=== PATIENT | female | born 1980 | race Caucasian/White ===

== ENCOUNTER 2021-09-04 07:57 | Outpatient (CLI) | payer OTHER, SELFPAY | END 2021-09-04 07:58 | disposition home or self-care (01) | PROVIDERS: PCP Family Medicine; Visit Provider Obstetrics & Gynecology | DX: Z01.818 Encounter for other preprocedural examination (principal); N92.6 Irregular menstruation, unspecified | CPT/HCPCS: 36415; 86850; 86900; 86901 ==

== ENCOUNTER 2021-09-10 00:23 | Day surgery (SDC) | payer OTHER, SELFPAY ==
--- NOTE | 2021-09-01 13:59 | SUR.PREOP ---
Report to the Outpatient Waiting Room, entrance under the green pavilion located off [facility], at time 0600 on date 09/10/21. OR Time: 0730. - You and your visitor will be asked a series of questions to screen for COVID 19 for your protection. - Only one visitor is allowed at this time. - The patient visitor is requested to leave or wait in car when not with patient. - A mask is required within the hospital. Patients may have clear liquids (water, carbonated beverages, clear teas, apple juice) until 3 hours prior to surgery with a maximum of 20 ounces. - NO CLEAR LIQUIDS AFTER 0430 - No food from midnight until time of surgery - Infants may have breast milk until 4 hours before surgery, infant formula 6 hours prior to surgery. - Children will be allowed to drink immediately following surgery. If applicable, please bring a bottle or sippy cup to assist with drinking. Juice, water, soda, and popsicles are readily available. For infants on formula, please bring formula the day of surgery. Pacifiers are allowed. Please no make-up, nail andorran, hairspray, perfume, deodorant, or body powder the day of surgery. No jewelry (including any body piercings) or valuables the day of surgery, leave them at home. Please take a shower or bath the night before, or the morning of, surgery with an antibacterial soap. Wear comfortable, loose fitting clothing. Children are encouraged to wear pajamas. - Jewelry must be removed prior to entering the operating room. Rings and piercings that are not removed may be cut off. - The hospital will not accept responsibility for valuables. - Please leave all valuables, including medications, at home the day of surgery. If you are going home after surgery, a licensed rental car ferry driver must drive you home. - NO public transportation without another adult. - We recommend that an adult stay with you for 24 hours following discharge. - We also recommend that you do not drive, make important decision, drink alcoholic beverages, or take any drugs that were not prescribed by your health care provider for at least 24 hours after your discharge time. For Pediatric surgeries, we recommend two adults accompany the child home (only one inside the building at this time). Follow any additional instructions given to you from your surgeon. If you or anyone in your household have experienced Covid symptoms in the past week, please notify your surgeon or the nurse liaison at the phone number below for possible testing. Telephone instructions given to ROBBY MURILLO and asked if any additional questions and then verbalized understanding. Patient advised to call surgeon office or pre surgery nurse liaison [phone] if any additional questions.
[2021-09-01 14:08] VITALS: BMI 31.0
--- NOTE | 2021-09-09 15:41 | PC.NURSE ---
Pt states no changes in health history or medications since initial interview. Pre-op instructions reviewed with pt. Pt denies further questions at this time.
--- NOTE | 2021-09-09 15:47 | PCCCNOTE ---
Phone call to Dr. Man's office, justine Ghosh about denied surgery codes 44800 and [id number]. Patient does have approval for [id number], she discusses with Ruth the line analyst and comes back on the line. Davina states yes that is correct and the patient is denied for codes 31386 and 44895 and plans to self pay. She brought 2700 dollars to the hospital yesterday has set up a payment plan.
[2021-09-10] VITALS (9 sets, daily range): BP systolic 96–110; BP diastolic 51–79; PULSE 58–92; RESP 10–20; TEMP 36.4–37.2; O2SAT 98–100
--- NOTE | 2021-09-10 06:52 | P.PNAN_ITS ---
Anes - Initial Pre Proc Eval Procedure: Operation Date: 09/10/21 07:30 Proposed Procedures p Total Laparoscopic Assisted Hysterectomy, Bilateral Salpingectomy, Left Oophorectomy - Jem Man MD Date/Time: 09/10/21 06:52 Surgeon: Jem Man MD Pre Op Diagnosis: dysmenorrhea Patient Data Age: 40 Gender: F Height: 1.6 m Weight: 79.5 kg Allergies Allergy/AdvReac Type Severity Reaction Status Date / Time No Known Allergies Allergy Unknown Unverified 09/10/21 06:27 Home Medications Medication Instructions Recorded Confirmed Type No Home Medications 09/01/21 09/10/21 History Patient hx anesthesia problems: none Family hx anesthesia problems: none Results Review: All pre-operative results and documents have been reviewed as part of the pre- operative evaluation. [facility] Past Medical History Medical History (Updated 09/10/21 @ 06:52 by Nando Rosales MD) Obesity Surgical History Surgical History (Updated 09/10/21 @ 06:53 by Nando Rosales MD) History of endometrial ablation S/P gastric sleeve procedure Social History Social History Smoking status: Never smoker Living arrangements: with family Spiritual care concerns: No Anes - Eval Final PreProcedure Day of Procedure 09/10/21 06:52 Patient weight: obese Heart: regular rate and rhythm Lungs: clear to auscultation Airway: Mallampati scale class II Neurological: alert and oriented Last oral intake: >/= 8 hours ASA classification: II Emergent: no Anesthesia type and monitoring: general ETT and standard monitoring Results Review: All pre-operative results and documents have been reviewed as part of the pre- operative evaluation. Informed Consent: The patient's anesthetic plan and its attendant risks and benefits were discussed with the patient/family/POA. Questions were solicited and answers provided to the satisfaction of the patient/family/POA.
--- NOTE | 2021-09-10 06:56 | PM.IMHP ---
H&P: HPI History of Present Illness Date/Time: 09/10/21 06:56 Chief Complaint: Dysmenorrhea, pelvic pain Narrative: This patient is a 40-year-old female with severe dysmenorrhea and pelvic pain who presents for total laparoscopic hysterectomy left salpingo-oophorectomy and right salpingectomy she understands the procedure. I described to her in detail. She understands there is risk. She understands that injuries may occur that result in hospitalization, more surgery, and severe illness. She understands risk of hemorrhage and infection. Review of Systems Review of Systems: All systems reviewed & are unremarkable except as noted in HPI and below Constitutional: Constitutional: Denies chills, Denies fatigue, Denies fever(s) and Denies weakness Eyes: Eyes: Denies blurry vision, Denies change in vision, Denies loss of peripheral vision, Denies loss of vision, Denies other visual disturbances and Denies eye pain ENT: Denies vertigo, Denies dizziness, Denies hearing loss, Denies mouth pain, Denies nasal obstruction, Denies neck mass and Denies neck pain Cardiovascular: Cardiovascular: Denies chest pain, Denies diaphoresis, Denies syncope, Denies leg edema and Denies dyspnea Respiratory: Respiratory: Denies chest congestion, Denies cough, Denies hemoptysis, Denies dyspnea and Denies wheezing Gastrointestinal: Gastrointestinal: Denies abdominal pain, Denies constipation, Denies diarrhea, Denies nausea and Denies vomiting Genitourinary: Genitourinary: Denies hematuria, Denies change in libido, Denies nocturia, Denies genital lesions, Denies flank pain and Denies urinary urgency Musculoskeletal: Musculoskeletal: Denies abnormal gait, Denies back pain, Denies myalgias, Denies arthralgias, Denies joint swelling, Denies muscle weakness and Denies neck pain Integumentary/Breasts: Skin/Breast: Denies swelling, Denies breast pain, Denies breast mass, Denies dry skin, Denies nipple discharge, Denies unusual bruising and Denies jaundice Neurologic: Denies Neuro-related abnormal movements, Denies Abnormal speech present, Denies abnormal gait, Denies behavioral changes, Denies confusion, Denies vertigo, Denies dizziness, Denies syncope, Denies loss of vision, Denies memory loss, Denies convulsions and Denies weakness Psychiatric: Psychiatric: Denies abnormal sleep pattern, Denies behavioral changes, Denies change in libido, Denies confusion, Denies depression, Denies anhedonia and Denies memory loss Endocrine: Endocrine: Reports no additional endocrine complaints, Denies change in libido and Denies fatigue Hematologic/Lymphatic: Hematologic/Lymphatic: Reports no additional hematologic/lymphatic complaints Allergic/Immunologic: Allergic/Immunologic: Reports no additional allergic/immunologic complaints and Denies wheezing PMFSH Past Medical History Medical History (Updated 09/10/21 @ 06:59 by Jem Man MD) Obesity Surgical History Surgical History (Updated 09/10/21 @ 06:53 by Nando Rosales MD) History of endometrial ablation S/P gastric sleeve procedure Social History Social History Smoking status: Never smoker Living arrangements: with family Spiritual care concerns: No Meds Home Medications and Allergies Home Medications Medication Instructions Recorded Confirmed Type No Home Medications 09/01/21 09/10/21 History Allergies Allergy/AdvReac Type Severity Reaction Status Date / Time No Known Allergies Allergy Unknown Unverified 09/10/21 06:27 Exam Const: General: cooperative, healthy appearing, comfortable and no acute distress; No confusion Orientation/consciousness: oriented to person, oriented to place, oriented to time and No confusion HENMT: Head: normal to inspection Ears: external ears normal General nose exam: Normal external nose present Face and sinus: normal facial exam Eyes: General: appearance normal, both eyes and all related st
[2021-09-10] MEDS: ACETAMINOPHEN 500 MG TABLET 1000 MG PO (06:59)
[2021-09-10] MEDS: SCOPOLAMINE 1.5 MG PATCH TRANSDERM (07:01)
--- NOTE | 2021-09-10 07:01 | WPDHPUPDATE1 ---
History and Physical Update Update Date/Time: 09/10/21 07:01 History and Physical has been reviewed, including an updated exam of the patient. There are NO changes in the patient's condition. Risks, benefits, and alternatives have been discussed and questions answered. Patient agrees to proceed with procedure.
[2021-09-10] MEDS: LACTATED RINGERS 1,000 ML 30 ML IV CONT ×2 (07:05→09:27)
[2021-09-10] MEDS: KETOROLAC 15 MG/ML VIAL (*BKC) IV PUSH (07:21)
[2021-09-10] MEDS: ceFAZolin 2 GM/D5W 50 ML 2 GM/50 ML BAG IVPB (07:30)
[2021-09-10] MEDS: ceFAZolin SODIUM 1 GM VIAL (07:30)
[2021-09-10] MEDS: fentaNYL CITRATE INJ (*CRX) 100 MCG/2 ML VIAL 25 MCG IV PUSH ×6 (09:45→10:30)
--- NOTE | 2021-09-10 09:54 | W.PM.PROC2 ---
Procedure Note - Detailed Date of Procedure 09/10/21 Pre-op Diagnosis dysmenorrhea Post-op Diagnosis Same (Pelvic adhesions) Procedure Performed Total laparoscopic hysterectomy. Bilateral salpingectomy and left oophorectomy, adhesiolysis-30 minutes Surgeon Jem Man MD Anesthesia General Indications Severe dysmenorrhea Findings Dense, diffuse adhesions between the uterus and the anterior abdominal wall/pelvic wall. Nodular irregular uterus, normal-appearing right ovary and tubes. Cystic left ovary Description of Procedure This patient was taken to the operating room. She was prepped and draped in the dorsal lithotomy position after induction of general anesthesia. The uterine manipulator and Leonard cup were placed. This was done with a speculum and tenaculum. The speculum was placed. The cervix was grasped with a tenaculum. The stay sutures were placed at 3 and 9:00 a.m.. The stay sutures of 0 Vicryl were brought through the appropriately sized Leonard cup. The tip of the RICKY manipulator was placed in the intrauterine cavity. The cup was slid into place around the cervix and into the fornices. It was locked into place. The sutures were then wrapped around the handle and tied under tension. A 5 mm skin incision was made in the left upper quadrant the abdomen. A 5 mm trocar was inserted into the intrauterine cavity under direct visualization of the scope. Pneumoperitoneum was achieved. A left lower quadrant 11 mm incision was made with scalpel. An 11 mm trocar was inserted into the anterior abdominal cavity under direct visualization the scope. A 5 mm infraumbilical incision was made with a scalpel and a 5 mm trocar was inserted the intra-abdominal cavity under direct visualization of the scope. 30 minutes of adhesiolysis was performed. This was required to separate the uterus from the anterior abdominal wall/pelvic wall. Sharp and blunt dissection along with cautery used to take down adhesions that were thick. Bilateral ureteral lysis was performed. This was done from the pelvic brim down to the uterine artery. This was done with careful dissection using sharp and blunt dissection. The fallopian tubes were removed bilaterally. The mesosalpinx around the fallopian tubes were cauterized transected with LigaSure cautery. This was done in a bilateral fashion from the ovary to the uterine cornua. The fallopian tube was transected at the uterine cornu and amputated. The tube was taken out the left lower quadrant trocar site. In a stepwise fashion along the lateral aspects of the uterus the round ligament and broad ligaments were cauterized transected down to the level of the uterine arteries. A bladder flap was created in the bladder was moved distally to the end of the cervix and over the Leonard cup. The bilateral uterine arteries were cauterized and transected. Colpotomy was then performed. In a circumferential fashion the vagina was transected using unipolar cautery. The incision was made down on the Leonard cup. The uterus and cervix were taken out through the vagina. A pneumo occluder was placed in the vagina. The vaginal cuff was closed with a 0 V lock suture in a running fashion. The pelvis was irrigated with copious amounts antibiotic irrigation. The ureters were again examined and found to be intact and flowing freely under the uterine arteries into the bladder. The bladder was intact. It was examined directly. The vagina was irrigated with Betadine solution after removal of the Pneumo occluder. The patient was taken to recovery room. She was stable condition. Sponge lap and needle counts were correct x2. Estimated Blood Loss -75.0 Drains Yes Packing No Pathology Yes Complications No immediate complications Condition Stable Disposition Floor
--- NOTE | 2021-09-10 10:51 | PC.NURSE ---
This patient, Licha Garcia, was received from PACU on 09/10/21 at 1051 via bed. Patient oriented to unit policies and routines.
[2021-09-10] MEDS: KETOROLAC 30 MG/ML VIAL (*BKC) IV PUSH (11:26)
[2021-09-10] MEDS: DEXTROSE 5%/0.45% SOD CHL 1,000 ML 125 ML IV CONT (11:26)
[2021-09-10] MEDS: HYDROcodone/acetaminophen (*CRX) 10-325 MG TABLET 1 TAB PO ×3 (13:57→21:02)
[2021-09-10] MEDS: IBUPROFEN 600 MG TABLET PO (17:10)
[2021-09-11] VITALS: BP 99/53; PULSE 67; RESP 18; TEMP 36.7
[2021-09-11] MEDS: HYDROcodone/acetaminophen (*CRX) 10-325 MG TABLET 1 TAB PO ×4 (00:16→12:13)
[2021-09-11] MEDS: IBUPROFEN 600 MG TABLET PO ×2 (00:16→08:12)
[2021-09-11 04:00] VITALS: BP 104/55; PULSE 67; RESP 18; TEMP 36.8
[2021-09-11 07:45] VITALS: BP 93/49; PULSE 66; RESP 18; TEMP 36.6; O2SAT 98
--- NOTE | 2021-09-11 08:04 | WPDANLDPN2 ---
Anes-Prog Note L&D Date/Time: 09/11/21 08:04 Comfortable throughout: labor and delivery Neuraxial method: epidural Epidural/Spinal procedure site: clean & non-tender Neuro status: Neuro function grossly intact. Cardiovascular status: normal Respiratory status: normal Airway patency: baseline Mental status: baseline Post-Op hydration status: normal Vital Signs: Last Vital Signs Temp 36.8 C 09/11/21 04:00 Pulse 67 09/11/21 04:00 Resp 18 09/11/21 04:00 BP 104/55 L 09/11/21 04:00 Pulse Ox 98 09/10/21 15:00 O2 Del Method Room Air 09/11/21 04:00 O2 Flow Rate 2 09/10/21 11:00 Pain score (VAS): 2 I/O: Intake & Output 09/10/21 09/11/21 09/11/21 23:59 07:59 15:59 Intake Total 1740 600 Output Total 700 650 Balance 1040 -50 Post-procedural complaints: none Patient feedback: Patient satisfied with anesthetic care.
--- NOTE | 2021-09-11 08:39 | PM.GYNPNOP ---
C D AREA SUPERVISOR - A/P Postoperative Procedures: Procedures Operation Date: 09/10/21 07:30 Actual Procedure Side Surgeon p Total Laparoscopic Assisted Hysterectomy, Bilateral Salpingectomy, Left Oophorectomy, Adhesiolysis 30 minutes Bilateral Jem Man MD Postoperative day: 1 Postoperative status: doing well and other (Tollerating Regular Diet) Postoperative plan: routine post-op care and discharge Time Spent With Patient Time: Total time spent is greater than 50% in coordination of care (as documented) at patient's floor/unit and/or counseling patient: Time with patient: 15 - 25 minutes C D AREA SUPERVISOR- PN:Subj Post-Op Subjective Date/time seen: 09/11/21 08:39 Subjective: patient reports feeling better, pain is well controlled and patient is tolerating oral intake Exam Const: General: cooperative, healthy appearing, comfortable and no acute distress Resp: Auscultation: no crackles, no rales, no rhonchi and no wheezes Cardio: Rhythm: regular rhythm Heart sounds: no click and no murmurs GI: Inspection: non-distended Auscultation: normal bowel sounds Other: Incisions - CDI Extrem: General: normal to inspection, no pedal edema and no calf tenderness C D AREA SUPERVISOR - PN: Obj Data Vital Signs Vital Signs: Vital Signs - 24 hr 09/10/21 09:27 09/10/21 09:40 09/10/21 09:55 Temperature 97.5 F L Pulse Rate 92 64 60 Respiratory Rate 12 10 L 12 Blood Pressure 108/51 L 101/56 L 110/57 L Pulse Oximetry 100 99 99 Oxygen Delivery Simple Face Mask Simple Face Mask Simple Face Mask Oxygen Flow Rate 6 6 6 09/10/21 10:10 09/10/21 10:25 09/10/21 11:00 Temperature Pulse Rate 60 58 L Respiratory Rate 14 16 Blood Pressure 108/79 96/68 L Pulse Oximetry 100 100 100 Oxygen Delivery Nasal Cannula Nasal Cannula Nasal Cannula Oxygen Flow Rate 2 2 2 09/10/21 11:00 09/10/21 15:00 09/10/21 15:00 Temperature 97.8 F 98.4 F Pulse Rate 69 80 Respiratory Rate 16 16 Blood Pressure 109/63 107/68 Pulse Oximetry 100 98 Oxygen Delivery Room Air Oxygen Flow Rate 09/10/21 18:30 09/10/21 18:30 09/11/21 00:00 Temperature 98.4 F 98.0 F Pulse Rate 71 67 Respiratory Rate 16 18 Blood Pressure 107/67 99/53 L Pulse Oximetry Oxygen Delivery Room Air Oxygen Flow Rate 09/11/21 00:00 09/11/21 04:00 09/11/21 04:00 Temperature 98.2 F Pulse Rate 67 Respiratory Rate 18 Blood Pressure 104/55 L Pulse Oximetry Oxygen Delivery Room Air Room Air Oxygen Flow Rate Intake/Output Intake/Output: Intake & Output 09/08/21 09/09/21 09/10/21 09/11/21 23:59 23:59 23:59 23:59 Intake Total 3390 600 Output Total 1350 650 Balance 2040 -50 Meds/Results Medications: Active Medications Generic Name Dose Route Start Last Admin Trade Name Freq PRN Reason Stop Dose Admin Hydrocodone Bitart/Acetaminophen 1 tab 09/10/21 10:41 Hydrocodone/Acetaminophen (*Crx) 5-325 Mg Tablet PO Q3H PRN Pain Rated 5 or Less Hydrocodone Bitart/Acetaminophen 1 tab 09/10/21 10:41 09/11/21 08:12 Hydrocodone/Acetaminophen (*Crx) 10-325 Mg Tablet PO 1 tab Q3H PRN Administration Pain Rated 6 or Greater Ibuprofen 600 mg 09/10/21 10:41 09/11/21 08:12 Ibuprofen 600 Mg Tablet PO 600 mg Q6H PRN Administration Cramping Ketorolac Tromethamine 30 mg 09/10/21 10:41 09/10/21 11:26 Ketorolac 30 Mg/Ml Vial (*Bkc) IV PUSH 09/15/21 10:40 15 mg Q6H PRN Administration Pain Rated 4-6 Naloxone HCl 0.1 mg 09/10/21 10:41 Naloxone Hcl 0.4 Mg/Ml Vial IV PUSH Q2M PRN Respiratory rate less than 10 Ondansetron HCl 4 mg 09/10/21 10:41 Ondansetron Inj 4 Mg/2 Ml Vial IV PUSH Q6H PRN Nausea And Vomiting
== END 2021-09-11 13:20 | disposition home or self-care (01) ==
LOC: ANHSURGERY 08:44 → ANHOB2 11:43
PROVIDERS: PCP Family Medicine; Visit Provider Obstetrics & Gynecology
PROC: 0UT9FZZ Resection of Uterus, Via Natural or Artificial Opening With Percutaneous Endoscopic Assistance (ICD-10-PCS; CPT 58571; principal; 2021-09-10 07:30)
DX: N94.6 Dysmenorrhea, unspecified (principal); K66.0 Peritoneal adhesions (postprocedural) (postinfection); N83.12 Corpus luteum cyst of left ovary; N87.9 Dysplasia of cervix uteri, unspecified; R10.2 Pelvic and perineal pain; Z98.84 Bariatric surgery status; E66.9 Obesity, unspecified; Z68.29 Body mass index [BMI] 29.0-29.9, adult
CPT/HCPCS: 58571; 36415; 86850; 86900; 86901; 88304; 88307; 99199; A9270; J0690; J1100; J1170; J1885; J2250; J2405; J2704; J2710; J3010; J7030; J7120

== ENCOUNTER 2022-06-03 09:54 | Outpatient (CLI) | payer OTHER, SELFPAY ==
[2022-06-03 11:09] LABS: Prealbumin 20.2 mg/dL (17.6-36.0)
[2022-06-03 11:25] LABS: Iron 115 ug/dL (37-170)
[2022-06-08 12:45] LABS: Vitamin B1 7 nmol/L (8-30)
== END 2022-06-03 09:55 | disposition home or self-care (01) ==
PROVIDERS: PCP Family Medicine; Visit Provider Surgery Plastic and Reconstructive Surgery
DX: R63.4 Abnormal weight loss (principal)
CPT/HCPCS: 36415; 82040; 83540; 84134; 84425

== ENCOUNTER 2022-06-19 00:35 | Day surgery (SDC) | payer OTHER, SELFPAY ==
[2022-06-15 12:36] VITALS: BMI 25.7
--- NOTE | 2022-06-15 12:41 | PC.NURSE ---
Report to the Outpatient Waiting Room, entrance under the green pavilion located off [facility], at time 7:00 on date 06/19/22. Planned Procedure Time: 9:00. Time changes happen often and if your time is changed the preop area will call you the afternoon before. - You and your visitor will be asked to self-screen and do not enter if you have any COVID symptoms. - A mask is optional within the hospital at this time. Patients may have clear liquids (water, carbonated beverages, clear teas, apple juice) until 3 hours prior to surgery with a maximum of 20 ounces. - No food from midnight until time of surgery Take the following medications with a SIP of water the morning of surgery: NONE DO NOT STOP ANY OF YOUR OTHER PRESCRIPTION MEDICATIONS PRIOR TO SURGERY EXCEPT THE FOLLOWING Medications to discontinue per physician: VITAMINS/SUPPLEMENTS Date to take last dose: 06/15/22 Please no make-up, nail urdu, hairspray, perfume, deodorant, or body powder the day of surgery. No jewelry (including any body piercings) or valuables the day of surgery, leave them at home. Please take a shower or bath the night before, or the morning of, surgery with an antibacterial soap. Wear comfortable, loose fitting clothing. - Jewelry must be removed prior to entering the operating room. Rings and piercings that are not removed may be cut off. - The hospital will not accept responsibility for valuables. - Please leave all valuables, including medications, at home the day of surgery. If you are going home after surgery, a licensed [place] driver must drive you home. - NO public transportation without another adult if you receive anesthesia. - We recommend that an adult stay with you for 24 hours following discharge. - We also recommend that you do not drive, make important decision, drink alcoholic beverages, or take any drugs that were not prescribed by your health care provider for at least 24 hours after your discharge time. Follow any additional instructions given to you from your surgeon. If you or anyone in your household have experienced Covid symptoms in the past week, please notify your surgeon or the nurse liaison at the phone number below for possible testing. Telephone instructions given to ALEC CASTRO and asked if any additional questions and then verbalized understanding. Patient advised to call surgeon office or pre surgery nurse liaison [phone] if any additional questions.
--- NOTE | 2022-06-18 14:23 | WPDANESEPPF ---
Anes - Initial Pre Proc Eval Procedure: Operation Date: 06/19/22 09:00 Proposed Procedures p Bilateral Medial Thigh Lift, - Reece Clifton MD s Bilateral Breast Mastopexy - Reece Clifton MD Date/Time: 06/18/22 14:23 Surgeon: Reece Clifton MD Pre Op Diagnosis: skin laxity, breast ptosis Patient Data Age: 41 Gender: F Height: 1.6 m Weight: 65.8 kg Allergies Allergy/AdvReac Type Severity Reaction Status Date / Time No Known Allergies Allergy Unknown Unverified 06/19/22 07:36 Home Medications Medication Instructions Recorded Confirmed Type cholecalciferol (vit D3) 1,000 1 tablet PO DAILY 06/15/22 06/19/22 History unit-vitamin K2 (MK4) 100 mcg tablet multivitamin 1 tablet PO DAILY 06/15/22 06/19/22 History Patient hx anesthesia problems: none Family hx anesthesia problems: none Results Review: All pre-operative results and documents have been reviewed as part of the pre-operative evaluation. [facility] Past Medical History Medical History (Updated 06/19/22 @ 07:46 by Micheal Durant MD) Dysmenorrhea Surgical History Surgical History (Updated 09/10/21 @ 06:53 by Nando Rosales MD) History of endometrial ablation S/P gastric sleeve procedure Social History Social History Smoking status: Never smoker Alcohol intake: current Alcohol use details: 2/MONTH Substance use: never Substance use type: does not use Living arrangements: with family Spiritual care concerns: No Anes - Eval Final PreProcedure Day of Procedure 06/18/22 14:23 Patient weight: obese Heart: regular rate and rhythm Lungs: clear to auscultation Airway: Mallampati scale class II Neurological: alert and oriented Last oral intake: >/= 8 hours ASA classification: I Emergent: no Anesthesia type and monitoring: general LMA and standard monitoring Results Review: All pre-operative results and documents have been reviewed as part of the pre-operative evaluation. Informed Consent: The patient's anesthetic plan and its attendant risks and benefits were discussed with the patient/family/POA. Questions were solicited and answers provided to the satisfaction of the patient/family/POA.
[2022-06-19] VITALS (10 sets, daily range): BP systolic 104–119; BP diastolic 62–71; PULSE 66–92; RESP 10–20; TEMP 36.4–36.7; O2SAT 100
--- NOTE | 2022-06-19 06:11 | ECG_ITS ---
Measurements Intervals [place] Rate: 61 P: 68 NV: 137 QRS: 24 QRSD: 102 T: 21 QT: 391 QTc: 397 Interpretive Statements SINUS RHYTHM WITH SINUS ARRHYTHMIA BASELINE ARTIFACT- V5 NORMAL ECG NO PREVIOUS ECG AVAILABLE FOR COMPARISON Electronically Signed On 06-19-2022 8:28:09 CDT by Agustin Reeves D.O.
[2022-06-19 07:33] LABS: Urine Cotinine NEGATIVE
[2022-06-19] MEDS: LACTATED RINGERS 1,000 ML 30 ML IV CONT ×2 (07:54→14:07)
[2022-06-19 08:02] LABS: Hematocrit 34.7 % (37.0-47.0); Hemoglobin 11.7 g/dL (12.0-15.0)
[2022-06-19] MEDS: SCOPOLAMINE 1.5 MG PATCH TRANSDERM (08:05)
--- NOTE | 2022-06-19 08:40 | WPDHPUPDATE1 ---
History and Physical Update Update Date/Time: 06/19/22 08:40 History and Physical has been reviewed, including an updated exam of the patient. There are NO changes in the patient's condition. Risks, benefits, and alternatives have been discussed and questions answered. Patient agrees to proceed with procedure.
--- NOTE | 2022-06-19 08:42 | W.PM.PROC2 ---
Procedure Note - Detailed Date of Procedure 06/19/22 Pre-op Diagnosis skin laxity, breast ptosis Post-op Diagnosis Same Procedure Performed 1. Bilateral augmentation mastopexy 2. Bilateral medial thigh lift Surgeon Reece Clifton MD Anesthesia General Findings Bilateral Eduardo SoftTouch 400cc implants Bilateral Superior pedicle, inverted T mastopexy Right - REF SSLP-400 SN [id number] Left - REF SSLP-400 SN [id number] Description of Procedure She is here today for bilateral breast augmentation mastopexy. Previously and again today the risks, benefits, alternatives were discussed in extensive detail. I wanted her to be very realistic about the risks involved as well as expectations. We discussed aftercare and what to monitor for. discussed her current asymmetry and how this will exist for breast and legs post-op. She has some vertical laxity of thighs and we discussed our options and understands this will exist after the procedure. Made sure answered all of her questions to her satisfaction today and consent was obtained. Marked in the preoperative holding area with their verification. The patient was taken to the operating room placed supine on the operating table. Anesthesia was provided by anesthesiology. A surgical time-out was taken. Breast We cleansed the skin and 1% lidocaine and 0.25% Marcaine with epinephrine was used anesthetize as a field block. She was prepped and draped in a standard sterile fashion. Tegaderm nipple Jang were placed. A 15 blade used to make an incision just superior to the inframammary fold leaving a cusp of de-epithelized tissue at the t junction. Dissection was continued until the chest wall as identified. I incised the pectoralis major along its inferior border and completely released the inferior border leaving the medial border intact. I created a subpectoral pocket in the appropriate dimensions based on our preoperative planning for the implant. I then copiously irrigated with saline solution and verified a strict hemostasis. Next the use a triple antibiotic and Betadine containing solution to irrigate the pocket. I washed my gloves with the triple antibiotic and Betadine solution. We washed the implant immediately upon opening it with this solution and only opened it when we needed it. I used implant funnel and no-touch technique. The implant was introduced into the pocket using the funnel. Having verified positioning of the implant this was closed using 2-0 PDS. I tailor tacked the breast into position. Placed her in a sitting position. Verified the nipple-areolar location based on preoperative planning as well as intraoperative observations and measurements in full agreement. She was placed supine. I de-epithelialized the pedicle. I then removed the inferior central portion of the breast need making sure the implant was well protected. I elevated medial and lateral tissue flaps as well for planned closure. I closed along the IMF with 2-0 Stratafix. Along the vertical with 2-0 PDS. I closed around the areola with 3-0 strata fix. 3-0 Monocryl along the vertical. 3-0 Stratafix along the IMF. I finally closed everything with running subcuticular 4-0 Monocryl and tissue glue. Thighs Stab incisions were made and I tumesced with a tumescent solution. Once adequate time for hemostasis suction lipectomy was with a 5mm basket cannula based on S.A.F.E. technique. This was completed based on preoperative planning, intraoperative observation, and rolling pinch test which was in full agreement. I completely de-fatted the planned resection area and a strip avulsion technique was completed. Starting proximal to distal a 10 blade was used to excise the intervening skin and this was tacked as we proceed to ensure good closure. This was closed using a 2-0 Quill, 3-0 strata fix, running subcuticular 4-0 Monocryl, and tissue glue. Dressings were placed. Tolerated the procedure well. Kenny
[2022-06-19] MEDS: TRANEXAMIC ACID 1,000MG/ISO100 1,000 MG/100 ML BAG 200 MG IVPB (09:09)
[2022-06-19] MEDS: ceFAZolin 2 GM/D5W 50 ML 2 GM/50 ML BAG IVPB (09:19)
[2022-06-19] MEDS: NACL 0.9% IRRIG POUR BOTTLE 900 ML, GENTAMICIN SULFATE INJ 160 MG, ceFAZolin 2 GM, POVI... IRRIGATION (09:55)
[2022-06-19] MEDS: LACTATED RINGERS IRRIG 1,000 ML, LIDOCAINE HCL 1% LOCAL INJ 50 ML, EPINEPHrine HCL INJ ... INFILTRATE (09:55)
[2022-06-19] MEDS: ceFAZolin SODIUM 1 GM VIAL IV PUSH (13:31)
[2022-06-19] MEDS: fentaNYL CITRATE INJ (*CRX) 100 MCG/2 ML VIAL 25 MCG IV PUSH ×2 (15:01→15:09)
[2022-06-19] MEDS: oxyCODONE HCL (*CRX) 5 MG TAB IR PO (15:38)
== END 2022-06-19 16:18 | disposition home or self-care (01) ==
PROVIDERS: PCP Family Medicine; Visit Provider Surgery Plastic and Reconstructive Surgery
PROC: (CPT 15832; principal; 2022-06-19 09:00)
PROC: (CPT 19316; 2022-06-19 09:00)
DX: Z41.1 Encounter for cosmetic surgery (principal); L57.4 Cutis laxa senilis; N64.81 Ptosis of breast; Z98.84 Bariatric surgery status
CPT/HCPCS: 19316; 19325; 15832; 80307; 85014; 85018; 93005; A9270; J0171; J0690; J1100; J1170; J1200; J1580; J2250; J2405; J2704; J2710; J3010; J7120

== ENCOUNTER 2022-10-02 13:32 | Outpatient (CLI) | payer OTHER, SELFPAY ==
[2022-10-02 14:00] LABS: Hematocrit 41.5 % (37.0-47.0); Hemoglobin 13.7 g/dL (12.0-15.0); Mean Corpuscular Hemoglobin 30.8 pg (26-34); Mean Corpuscular Volume 93.3 fl (80-100); Mean Platelet Volume 9.6 fl (7.4-10.4); Platelet Count Result 266 k/mm3 (150-375); Red Blood Count 4.45 M/mm3 (4.2-5.4); Red Cell Distribution Width 11.6 % (11.5-14.5); White Blood Count 7.2 K/mm3 (4.5-10.0)
[2022-10-02 14:12] LABS: Albumin Level 4.8 g/dL (3.5-5.1); Anion Gap 10 mmol/L (8-16); Blood Urea Nitrogen 21 mg/dL (7-17); Calcium 9.8 mg/dL (8.4-10.2); Carbon Dioxide 26 mmol/L (22-30); Chloride 104 mmol/L (98-107); Estimated Glomerular Filt Rate > 60; Glucose 90 mg/dL (65-110); Potassium 4.2 mmol/L (3.4-5.0); Sodium 140 mmol/L (137-145)
[2022-10-02 14:19] LABS: Prealbumin 23.8 mg/dL (17.6-36.0)
[2022-10-02 14:23] LABS: Iron 120 ug/dL (37-170)
[2022-10-07 14:46] LABS: Vitamin B1 12 nmol/L (8-30)
== END 2022-10-02 13:33 | disposition home or self-care (01) ==
LOC: ANHLAB 13:35
PROVIDERS: PCP Family Medicine; Visit Provider Surgery Plastic and Reconstructive Surgery
DX: R63.4 Abnormal weight loss (principal)
CPT/HCPCS: 36415; 80048; 82040; 83540; 84134; 84425; 85027

== ENCOUNTER 2022-10-08 00:47 | Day surgery (SDC) | payer OTHER, SELFPAY ==
--- NOTE | 2022-10-05 15:08 | PC.NURSE ---
Report to the Outpatient Waiting Room, entrance under the green pavilion located off [facility], at time _0600 on date __10/08/22 . Planned Procedure Time: _0730 . Time changes happen often and if your time is changed the preop area will call you the afternoon before. - You and your visitor will be asked to self-screen and do not enter if you have any COVID symptoms. - A mask is optional within the hospital at this time. Patients may have clear liquids (water, carbonated beverages, clear teas, apple juice) until 3 hours prior to surgery with a maximum of 20 ounces. - No food from midnight until time of surgery - Infants may have breast milk until 4 hours before surgery, infant formula 6 hours prior to surgery. - Children will be allowed to drink immediately following surgery. If applicable, please bring a bottle or sippy cup to assist with drinking. Juice, water, soda, and popsicles are readily available. For infants on formula, please bring formula the day of surgery. Pacifiers are allowed. Take the following medications with a SIP of water the morning of surgery: __NONE DO NOT STOP ANY OF YOUR OTHER PRESCRIPTION MEDICATIONS PRIOR TO SURGERY ?EXCEPT THE FOLLOWING Medications to discontinue per physician ALL VITAMINS AND SUPPLEMENTS 3 DAYS PRE OP .LAST DOSE 10/04/22 Please no make-up, nail nigerien, hairspray, perfume, deodorant, or body powder the day of surgery. No jewelry (including any body piercings) or valuables the day of surgery, leave them at home. Please take a shower or bath the night before, or the morning of, surgery with an antibacterial soap. Wear comfortable, loose fitting clothing. Children are encouraged to wear pajamas. - Jewelry must be removed prior to entering the operating room. Rings and piercings that are not removed may be cut off. - The hospital will not accept responsibility for valuables. - Please leave all valuables, including medications, at home the day of surgery. If you are going home after surgery, a licensed school bus driver/teacher assistant must drive you home. - NO public transportation without another adult if you receive anesthesia. - We recommend that an adult stay with you for 24 hours following discharge. - We also recommend that you do not drive, make important decision, drink alcoholic beverages, or take any drugs that were not prescribed by your health care provider for at least 24 hours after your discharge time. For Pediatric surgeries, we recommend two adults accompany the child home. Follow any additional instructions given to you from your surgeon. If you or anyone in your household have experienced Covid symptoms in the past week, please notify your surgeon or the nurse liaison at the phone number below for possible testing. Telephone instructions given to ___PATIENT and asked if any additional questions and then verbalized understanding. Patient advised to call surgeon office or pre surgery nurse liaison [phone] if any additional questions.
[2022-10-05 15:13] VITALS: BMI 24.8
[2022-10-08] VITALS (10 sets, daily range): BP systolic 100–126; BP diastolic 57–95; PULSE 57–103; RESP 11–24; TEMP 36.9–37.2; O2SAT 96–100
[2022-10-08 06:42] LABS: Urine Cotinine NEGATIVE
[2022-10-08] MEDS: LACTATED RINGERS 1,000 ML 30 ML IV CONT ×2 (06:45→11:26)
--- NOTE | 2022-10-08 06:55 | WPDHPUPDATE1 ---
History and Physical Update Update Date/Time: 10/08/22 06:55 History and Physical has been reviewed, including an updated exam of the patient. There are NO changes in the patient's condition. Risks, benefits, and alternatives have been discussed and questions answered. Patient agrees to proceed with procedure.
--- NOTE | 2022-10-08 06:55 | W.PM.PROC2 ---
Procedure Note - Detailed Date of Procedure 10/08/22 Pre-op Diagnosis skin laxity Post-op Diagnosis Same Procedure Performed Progressive tension abdominoplasty with suction lipectomy Surgeon Reece Clifton MD Anesthesia General Findings Tissue removed: 1815 grams Lipoaspirate: 1300 cc Description of Procedure They are here today for the above. Previously and again today the risks, benefits, alternatives were discussed in extensive detail. I wanted them to be very realistic about the risks involved as well as expectations. We discussed aftercare and what to monitor for. I was very upfront about the risks of wound breakdown leading to loss of skin, open wounds, and need for additional procedures with permanent abdominal deformity. We discussed DVT/PE risks and management. Made sure answered all of their questions to their satisfaction today and consent was obtained. They were marked in the preoperative holding area with their verification. The patient was taken to the operating room. Anesthesia was provided by anesthesiology. A Breaux catheter was started. Placed prone with care taken to protect from injury. They were prepped and draped in a standard sterile fashion. A surgical time-out was taken. Stab incisions were made and tumescent solution infiltrated. Once adequate time was allowed for hemostasis a 5mm basket cannula and 3mm multi-hole cannula were utilized to complete suction lipectomy based on S.A.F.E. technique in multiple planes and passes. Suction lipectomy continued to result based on pre-operative planning, intra-operative observation, and rolling pinch test which were in full agreement. The patient was then transfered supine with care taken to protect from injury during the turn to protect from injury. Prepped and draped in a standard sterile fashion. I placed the patient in a flexed position to verify the upper and lower markings would reach. I then placed supine. A thorough abdominal examination was completed. Stab incisions were made and tumescent solution infiltrated. Once adequate time was allowed for hemostasis a 5mm basket cannula was again utilized to complete suction lipectomy based on S.A.F.E. technique in multiple planes and passes. Suction lipectomy continued to result based on pre-operative planning, intra-operative observation, and rolling pinch test which were in full agreement. A 10 blade was used to make the upper incision. I continued dissection down to the level of fascia. Elevated just what was necessary for repair of the diastasis. I then again flexed the bed to verify the upper skin flap would reach the lower markings without tension. Once verified I placed her supine once again and a 10 blade used to make the lower incision. I elevated up to level the umbilicus and left the umbilicus intact on a well-vascularized stalk. The intervening tissue was removed. A 2 mm blunt cannula with 0.5% bupivicaine was injected deep to the fascia bilaterally. I plicated the diastasis recti using 0 PDO stratafix barbed suture. This was in 2 separate layers using 2 separate sutures as well. I repaired around the umbilicus leaving plenty of room for well-vascularized stalk of the umbilicus with 2-0 PDS. I also repaired lateral to the rectus using two layers of 0 PDO stratafix. The patient was flexed and starting from superior to inferior began plication using 2-0 Vicryl to obliterate all space in a standard progressive tension fashion. At the umbilicus I marked out the location of the skin and inset this with 3-0 Monocryl and 4-0 Vicryl. I continued the remainder of the plication using 2-0 Vicryl until I reached my lower planned scar line. I trimmed any excess skin of the upper flap making sure this was a tension-free closure. I then approximated using a 3 point suture with 2-0 Vicryl followed by 3-0 stratafix ,running subcuticular 4-0 Monocryl, and tissue glue. Fluffs and an abdominal binder were
[2022-10-08] MEDS: SCOPOLAMINE 1.5 MG PATCH TRANSDERM (07:10)
--- NOTE | 2022-10-08 07:10 | P.PNAN_ITS ---
Anes - Initial Pre Proc Eval Procedure: Operation Date: 10/08/22 07:30 Proposed Procedures p Abdominoplasty with Liposuction - Reece Clifton MD Date/Time: 10/08/22 07:10 Surgeon: Reece Clifton MD Pre Op Diagnosis: skin laxity Patient Data Age: 41 Gender: F Height: 1.6 m Weight: 63.6 kg Allergies Allergy/AdvReac Type Severity Reaction Status Date / Time No Known Allergies Allergy Unknown Unverified 10/05/22 15:03 Home Medications Medication Instructions Recorded Confirmed Type cholecalciferol (vit D3) 1,000 1 tablet PO DAILY 06/15/22 10/05/22 History unit-vitamin K2 (MK4) 100 mcg tablet multivitamin 1 tablet PO DAILY 06/15/22 10/05/22 History oxycodone-acetaminophen 5 mg-325 1 tablet PO PRN PRN Pain 10/05/22 10/05/22 History mg tablet Laboratory Tests 10/08/22 06:30 Cotinine Negative Patient hx anesthesia problems: post op nausea/vomiting Family hx anesthesia problems: none Results Review: All pre-operative results and documents have been reviewed as part of the pre- operative evaluation. [facility] Past Medical History Medical History Dysmenorrhea Surgical History Surgical History History of endometrial ablation S/P gastric sleeve procedure Social History Social History Smoking status: Never smoker Alcohol intake: current Alcohol use details: 3 DRINKS PER MONTH Substance use: never Substance use type: does not use Living arrangements: with family Spiritual care concerns: No Anes - Eval Final PreProcedure Day of Procedure 10/08/22 07:10 Patient weight: normal Heart: regular rate and rhythm Lungs: clear to auscultation Airway: Mallampati scale class II Neurological: alert and oriented Last oral intake: >/= 8 hours ASA classification: I Emergent: no Anesthetic plan: proceed Anesthesia type and monitoring: general ETT and standard monitoring Results Review: All pre-operative results and documents have been reviewed as part of the pre- operative evaluation. Informed Consent: The patient's anesthetic plan and its attendant risks and benefits were discussed with the patient/family/POA. Questions were solicited and answers provided to the satisfaction of the patient/family/POA.
[2022-10-08] MEDS: ceFAZolin 2 GM/D5W 50 ML 2 GM/50 ML BAG IVPB (08:07)
[2022-10-08] MEDS: fentaNYL CITRATE INJ (*CRX) 100 MCG/2 ML VIAL 25 MCG IV PUSH ×6 (11:40→12:29)
[2022-10-08] MEDS: oxyCODONE HCL (*CRX) 5 MG TAB IR PO (13:09)
== END 2022-10-08 13:50 | disposition home or self-care (01) ==
PROVIDERS: PCP Family Medicine; Visit Provider Surgery Plastic and Reconstructive Surgery
PROC: (CPT 15830; principal; 2022-10-08 07:30)
DX: Z41.1 Encounter for cosmetic surgery (principal); L57.4 Cutis laxa senilis; Z98.84 Bariatric surgery status; Z79.891 Long term (current) use of opiate analgesic
CPT/HCPCS: 15830; 15847; 15877; 80307; A9270; J0171; J0330; J0690; J1100; J1170; J2250; J2371; J2405; J2704; J3010; J7120

== ENCOUNTER 2022-12-18 03:06 | Day surgery (SDC) | payer OTHER, SELFPAY ==
[2022-12-11 11:58] VITALS: BMI 23.9
--- NOTE | 2022-12-11 12:02 | PC.NURSE ---
Report to the Outpatient Waiting Room, entrance under the green pavilion located off [facility], at time 0630 on date 12/18/22. Planned Procedure Time: 0830. Time changes happen often and if your time is changed the preop area will call you the afternoon before. - You and your visitor will be asked to self-screen and do not enter if you have any COVID symptoms. - A mask is optional within the hospital at this time. Patients may have clear liquids (water, carbonated beverages, clear teas, apple juice) until 3 hours prior to surgery with a maximum of 20 ounces. - No food from midnight until time of surgery Take the following medications with a SIP of water the morning of surgery: N/A DO NOT STOP ANY OF YOUR OTHER PRESCRIPTION MEDICATIONS PRIOR TO SURGERY ?EXCEPT THE FOLLOWING Medications to discontinue per physician: VITAMINS/SUPPLEMENTS Date to take last dose: 12/14/22 Please no make-up, nail italian, hairspray, perfume, deodorant, or body powder the day of surgery. No jewelry (including any body piercings) or valuables the day of surgery, leave them at home. Please take a shower or bath the night before, or the morning of, surgery with an antibacterial soap. Wear comfortable, loose fitting clothing. - Jewelry must be removed prior to entering the operating room. Rings and piercings that are not removed may be cut off. - The hospital will not accept responsibility for valuables. - Please leave all valuables, including medications, at home the day of surgery. If you are going home after surgery, a licensed jeep driver must drive you home. - NO public transportation without another adult if you receive anesthesia. - We recommend that an adult stay with you for 24 hours following discharge. - We also recommend that you do not drive, make important decision, drink alcoholic beverages, or take any drugs that were not prescribed by your health care provider for at least 24 hours after your discharge time. Follow any additional instructions given to you from your surgeon. If you or anyone in your household have experienced Covid symptoms in the past week, please notify your surgeon or the nurse liaison at the phone number below for possible testing. Telephone instructions given to ALEC CASTRO and asked if any additional questions and then verbalized understanding. Patient advised to call surgeon office or pre surgery nurse liaison [phone] if any additional questions.
[2022-12-18] VITALS (11 sets, daily range): BP systolic 103–149; BP diastolic 58–85; PULSE 63–93; RESP 12–16; TEMP 36.8; O2SAT 96–100
[2022-12-18] MEDS: SCOPOLAMINE 1.5 MG PATCH TRANSDERM (06:50)
[2022-12-18] MEDS: LACTATED RINGERS 1,000 ML 30 ML IV CONT ×2 (06:50→11:36)
[2022-12-18 07:14] LABS: Urine Cotinine NEGATIVE
--- NOTE | 2022-12-18 07:16 | WPDANESEPPF ---
Anes - Initial Pre Proc Eval Procedure: Operation Date: 12/18/22 08:30 Proposed Procedures p Bilateral Brachioplasty - Reece Clifton MD Date/Time: 12/18/22 07:16 Surgeon: Reece Clifton MD Pre Op Diagnosis: skin laxity Patient Data Age: 42 Gender: F Height: 1.6 m Weight: 61.25 kg Allergies Allergy/AdvReac Type Severity Reaction Status Date / Time No Known Allergies Allergy Unknown Unverified 12/11/22 11:57 Home Medications Medication Instructions Recorded Confirmed Type cholecalciferol (vit D3) 1,000 1 tablet PO DAILY 06/15/22 12/11/22 History unit-vitamin K2 (MK4) 100 mcg tablet multivitamin 1 tablet PO DAILY 06/15/22 12/11/22 History Laboratory Tests 12/18/22 06:49 Cotinine Negative Patient hx anesthesia problems: post op nausea/vomiting Family hx anesthesia problems: none Results Review: All pre-operative results and documents have been reviewed as part of the pre-operative evaluation. [facility] Past Medical History Medical History Dysmenorrhea Surgical History Surgical History History of endometrial ablation S/P gastric sleeve procedure Social History Social History Smoking status: Never smoker Alcohol intake: current Drinks per week: 1 Alcohol use details: 3 DRINKS PER MONTH Substance use: never Substance use type: does not use Living arrangements: with family Spiritual care concerns: No Anes - Eval Final PreProcedure Day of Procedure 12/18/22 07:16 Patient weight: normal Heart: regular rate and rhythm Lungs: clear to auscultation Airway: Mallampati scale class II Neurological: alert and oriented Last oral intake: >/= 8 hours ASA classification: I Emergent: no Anesthetic plan: proceed Anesthesia type and monitoring: general LMA and standard monitoring Results Review: All pre-operative results and documents have been reviewed as part of the pre-operative evaluation. Informed Consent: The patient's anesthetic plan and its attendant risks and benefits were discussed with the patient/family/POA. Questions were solicited and answers provided to the satisfaction of the patient/family/POA.
[2022-12-18] MEDS: TRANEXAMIC ACID 1,000MG/ISO100 1,000 MG/100 ML BAG 200 MG IVPB (07:30)
--- NOTE | 2022-12-18 08:16 | WPDHPUPDATE1 ---
History and Physical Update Update Date/Time: 12/18/22 08:16 History and Physical has been reviewed, including an updated exam of the patient. There are NO changes in the patient's condition. Risks, benefits, and alternatives have been discussed and questions answered. Patient agrees to proceed with procedure.
--- NOTE | 2022-12-18 08:16 | W.PM.PROC2 ---
Procedure Note - Detailed Date of Procedure 12/18/22 Pre-op Diagnosis skin laxity Post-op Diagnosis Same Procedure Performed Bilateral brachioplasty Surgeon Reece Clifton MD Anesthesia General Findings Lipoaspirate: 400 cc Description of Procedure Here for the above procedures. Preoperatively risks, benefits, alternatives were discussed again today in extensive detail. I want to be very realistic about the risks involved as well as expectations. Made sure answered all of their questions to satisfaction. They voiced a clear understanding. Consent obtained. Patient was marked in the preoperative holding area with their verification. Taken to the operating placed supine on the operating table. Anesthesia was provided by anesthesiology. Prepped and draped in a standard sterile fashion. Surgical time-out was taken. Stab incisions were made and I tumesced with a tumescent solution. Once adequate time for hemostasis suction lipectomy was with a 4 mm basket cannula based on S.A.F.E. technique. This was completed based on preoperative planning, intraoperative observation, and rolling pinch test which was in full agreement. I completely de-fatted the planned resection area and a strip avulsion technique was completed. Starting proximal to distal a 10 blade was used to excise the intervening skin and this was tacked as we proceed to ensure good closure. This was closed using a 2-0 Quill, 3-0 strata fix, running subcuticular 4-0 Monocryl, and tissue glue. Dressings were placed. Tolerated the procedure well. Taken to the PACU without difficulty. All instrument sponge counts were correct at the end of the case. Estimated Blood Loss 30 Drains No Packing No Pathology None sent Complications No immediate complications Condition Stable Disposition PACU
[2022-12-18] MEDS: ceFAZolin 2 GM/D5W 50 ML 2 GM/50 ML BAG IVPB (08:46)
[2022-12-18] MEDS: LACTATED RINGERS IRRIG 1,000 ML, LIDOCAINE HCL 1% LOCAL INJ 50 ML, EPINEPHrine HCL INJ ... INFILTRATE (09:17)
[2022-12-18] MEDS: HYDROmorphone HCL INJ (*CRX) 1 MG/ML SYR 0.5 MG IV PUSH ×3 (11:58→12:12)
[2022-12-18] MEDS: oxyCODONE HCL (*CRX) 5 MG TAB IR PO (13:14)
--- NOTE | 2022-12-18 15:52 | SUR.PHASEII ---
1345: RN called back to OR [address] Clifton of purple hands and lower forearms. He said he would come and assess patient when he was finished in the OR. Patient and spouse didn't want to wait so RN called OR [address] Clifton told RN it was okay to loosen matthew wraps on bilateral arms. Patient's hands and forearms were no longer purple after doing so.
== END 2022-12-18 14:55 | disposition home or self-care (01) ==
PROVIDERS: PCP Family Medicine; Visit Provider Surgery Plastic and Reconstructive Surgery
PROC: (CPT 15836; principal; 2022-12-18 08:30)
DX: Z41.1 Encounter for cosmetic surgery (principal); L57.4 Cutis laxa senilis; Z98.84 Bariatric surgery status
CPT/HCPCS: 15836; 15878; 80307; A9270; J0171; J0690; J1170; J2250; J3010; J7120